=== PATIENT | male | born 1980 | race American Indian/Alaskan Native ===

== ENCOUNTER 2018-05-18 12:00 | Emergency (ER) | payer OTHER ==
[2018-05-18 12:09] VITALS: BP 145/89
--- NOTE | 2018-05-18 12:51 | Emergency Department Report ---
ED General Adult HPI - General Chief complaint: Dental/Oral Stated complaint: TOOTHACHE/BACK PAIN Time Seen by Provider: 05/18/18 12:34 Source: patient, family Mode of arrival: Ambulatory Limitations: No Limitations - History of Present Illness Initial comments: This is a 38-year-old male here report that he has been having complaints of toothache 2 weeks and does not have a dentist. He states that he has lower back pain with urinary frequency. Denies any trauma to back. Denies any urinary burning or urgency. Denies any blood in his urine. Pain is in his lower back on both sides and he has been having this on and off for a while. Denies any fever or chills. Denies any loss of bowel or bladder function. Denies any drooling, sore throat, cough, sinus congestion or runny nose. Denies any shortness of breath or wheezing. Patient does not have a dentist. And except for his chronic back pain he does not have any medical problems. He is here to have is tooth checked and also to check his urine to see if he evidently infection. Pain is 8 out of 10 worse with eating and talking and and his back pain is worse with movement but no alleviating factors to tooth/back. MD Complaint: toothache and back pain Onset/Timin (back pain for more than 3 months without any injury) -: week(s) Location: mouth, back Radiation: non-radiation Severity scale (0 -10): 8 Quality: aching Improves with: none Worsens with: eating, movement Associated Symptoms: denies: confusion, chest pain, cough, diaphoresis, fever/ chills, headaches, loss of appetite, malaise, nausea/vomiting, rash, seizure, shortness of breath, syncope, weakness Treatments Prior to Arrival: NSAID - Related Data Previous Rx's Medication Instructions Recorded Last Taken Type Acetaminophen/Codeine [Tylenol 1 tab PO Q6H PRN #14 tab 05/18/18 Unknown Rx /Codeine # 3 tab] Ibuprofen [Motrin] 600 mg PO Q8H PRN #12 tablet 05/18/18 Unknown Rx Penicillin V Potassium 500 mg PO Q8H 10 Days #30 tablet 05/18/18 Unknown Rx Allergies Allergy/AdvReac Type Severity Reaction Status Date / Time shellfish derived Allergy Anaphylaxis Verified 05/18/18 12:09 ED Review of Systems ROS: Stated complaint: TOOTHACHE/BACK PAIN Other details as noted in HPI Constitutional: denies: chills, fever ENT: dental pain. denies: ear pain, throat pain, hearing loss, congestion Respiratory: denies: cough, shortness of breath, SOB with exertion, SOB at rest , stridor, wheezing Cardiovascular: denies: chest pain, palpitations, edema, syncope Gastrointestinal: denies: abdominal pain, nausea, vomiting, diarrhea, constipation, hematemesis, melena, hematochezia Genitourinary: frequency. denies: urgency, dysuria, hematuria, discharge, testicular pain, testicular mass Musculoskeletal: back pain. denies: joint swelling, arthralgia Skin: denies: rash, lesions Neurological: denies: headache, weakness, numbness, paresthesias, confusion, abnormal gait, vertigo ED Past Medical Hx - Past Medical History Previous Medical History?: No - Surgical History Past Surgical History?: No - Family History Family history: hypertension - Social History Smoking Status: Current Every Day Smoker Substance Use Type: None - Medications Home Medications: Home Medications Medication Instructions Recorded Confirmed Last Taken Type Acetaminophen/Codeine [Tylenol 1 tab PO Q6H PRN #14 tab 05/18/18 Unknown Rx /Codeine # 3 tab] Ibuprofen [Motrin] 600 mg PO Q8H PRN #12 tablet 05/18/18 Unknown Rx Penicillin V Potassium 500 mg PO Q8H 10 Days #30 tablet 05/18/18 Unknown Rx ED Physical Exam - General Limitations: No Limitations General appearance: alert, in no apparent distress - Head Head exam: Present: atraumatic, normocephalic, normal inspection - Eye Eye exam: Present: normal appearance, PERRL, EOMI Pupils: Present: normal accommodation - ENT ENT exam: Present: normal orophraynx, mucous membranes moist, TM's normal bilaterally, normal external ear exam. Absent: normal exam - Expanded ENT Exam Expanded Ear exam: Present: normal external inspection Mouth exam: Present: tongue normal. Absent: drooling, trismus, muffled voice, tongue elevation, laceration Teeth exam: Present: dental caries, fractured tooth # (16 and 2), dental tenderness # (tooth #16), gingival enlargement. Absent: normal inspection Throat exam: Positive: normal inspection - Neck Neck exam: Present: normal inspection, full ROM. Absent: tenderness, lymphadenopathy - Respiratory Respiratory exam: Present: normal lung sounds bilaterally. Absent: respiratory distress, chest wall tenderness - Cardiovascular Cardiovascular Exam: Present: normal rhythm, tachycardia, normal heart sounds. Absent: systolic murmur, diastolic murmur - GI/Abdominal GI/Abdominal exam: Present: soft, normal bowel sounds. Absent: distended, tenderness, guarding, rebound, rigid, organomegaly, mass - Extremities Exam Extremities exam: Present: normal inspection, full ROM, normal capillary refill , other (No cce. + 2 pulses in all extremities, no neurovascular compromise). Absent: tenderness, pedal edema, joint swelling, calf tenderness - Back Exam Back exam: Present: normal inspection, full ROM, other (ambulates without any difficulties). Absent: tenderness, CVA tenderness (R), CVA tenderness (L), muscle spasm, paraspinal tenderness, vertebral tenderness, rash noted - Expanded Back Exam Expanded Back exam: Absent: saddle anesthesia Back exam: Negative Straight Leg Raising: Left, Right - Neurological Exam Neurological exam: Present: alert, oriented X3, normal gait, reflexes normal, other (no focal neurological deficits). Absent: motor sensory deficit - Psychiatric Psychiatric exam: Present: normal affect, normal mood - Skin Skin exam: Present: warm, dry, intact. Absent: rash ED Course Vital Signs 05/18/18 05/18/18 05/18/18 12:05 12:57 14:05 Temperature 98.3 F Pulse Rate 110 H 82 Respiratory 18 17 Rate Blood Pressure 145/89 O2 Sat by Pulse 98 Oximetry - Reevaluation(s) Reevaluation #1: 05/18/18 14:04 Patient given amoxicillin 1 g by mouth for toothache and dental caries with gingivitis and hydrocodone 5/325 mg 2 tablets by mouth for toothache. Urinalysis is negative. ED Medical Decision Making - Lab Data Lab Results 05/18/18 Range/Units 12:58 Urine Color Yellow (Yellow) Urine Turbidity Clear (Clear) Urine pH 5.0 (5.0-7.0) Ur Specific [place] 1.020 (1.003-1.030) Urine Protein <15 mg/dl (Negative) mg/dL Urine Glucose (UA) Neg (Negative) mg/dL Urine Ketones Neg (Negative) mg/dL Urine Blood Neg (Negative) Urine Nitrite Neg (Negative) Urine Bilirubin Neg (Negative) Urine Urobilinogen < 2.0 (<2.0) mg/dL Ur Leukocyte Esterase Neg (Negative) Urine WBC (Auto) 1.0 (0.0-6.0) /HPF Urine RBC (Auto) 2.0 (0.0-6.0) /HPF Urine Mucus Few /HPF - Medical Decision Making Patient presented to the emergency room before that he is having urinary frequency and lower back pain and he is worried about having urinary tract infection or kidney stone heave no he has not had any history of kidney stones. Patient reports that he is also having toothache and does not have a dentist. Patient is here to be seen for back pain, urinary frequency and toothache. Patient was seen and examined by myself. Vital signs are stable is a febrile, urinalysis with normal findings. Patient with dental tenderness to tooth #2 and 16. He is fracture to tooth #16. Gingivitis changes of bowel enlargement noted along with dental caries. Patient mouth is moist, oral airways patent, tongue is normal, no [employer] and no erythema to oropharynx area. Uvula is midline and oral airways patent. All other physical findings are normal. Patient had normal back exam with no CVA tenderness and no abdominal tenderness. I discussed the patient is diagnosis and urinalysis findings. Patient was given pain medication and antibiotic and emergency room and I discussed with family that he will need to follow-up with dentist and primary care physician which she does not have either. Assessment/plan Patient with poor dental care and follow-up with physical exam findings for Gingivitis, toothache, dental tenderness to tooth #2 and 16, fracture to tooth # 16, dental caries-patient given amoxicillin 1 g by mouth and emergency room and he was also given [place] 5/325 mg 2 tablets by mouth in the emergency room which relieved this pain. Patient will be discharged home on penicillin V and Tylenol 3 and Motrin for pain. Patient referred to [facility] Urinary frequency-urinalysis is normal Lower back pain-she will a chronic lower back pain and I referred him to orthopedic doctor. It is better after medication. Patient discharged home in stable condition. Vital signs stable is a febrile. He said his pain is better. He was given prescription for Motrin, Tylenol 3 and penicillin V and also told to follow-up with [facility], Dr. Oswald for chronic lower back pain and some outside [facility] for primary care visits in 3-5 days. - Differential Diagnosis [employer], pharyngitis, acute fracture, tooth abscess, gingivitis, toothache Critical care attestation.: If time is entered above; I have spent that time in minutes in the direct care of this critically ill patient, excluding procedure time. ED Disposition Clinical Impression: Toothache, Gingivitis, Dental caries Tooth fractures Qualifiers: Encounter type: initial encounter Fracture type: closed Qualified Code(s): S02.5XXA - Fracture of tooth (traumatic), initial encounter for closed fracture Lower back pain Qualifiers: Chronicity: unspecified Back pain laterality: bilateral Sciatica presence: without sciatica Qualified Code(s): M54.5 - Low back pain Disposition: TO HOME OR SELFCARE Is pt being admited?: No Does the pt Need Aspirin: No Condition: Stable Instructions: Dental Caries (ED), Gingivitis (ED), Toothache (ED), Back Pain ( ED) Additional Instructions: Please follow-up with orthopedic doctor for ongoing chronic lower back pain. Take Motrin for mild pain and Tylenol 3 for severe pain this will help her get toothache and your back pain. Urinalysis was normal Follow up at [facility] dental clinic to manage multiple dental problems. Gargle with Listerine mouthwash twice daily Take penicillin V for multiple dental problems Prescriptions: Acetaminophen/Codeine [Tylenol /Codeine # 3 tab] 1 tab PO Q6H PRN #14 tab PRN Reason: moderate to severe pain Ibuprofen [Motrin] 600 mg PO Q8H PRN #12 tablet PRN Reason: Pain Penicillin V Potassium 500 mg PO Q8H 10 Days #30 tablet Referrals: [facility] [place] [Outside] - 3-5 Days [facility] [Outside] - 3-5 Days JUAN PABLO OSWALD MD [Staff Physician] - 3-5 Days Forms: Work/School Release Form(ED)
[2018-05-18] MEDS ORDERED: NORCO 5/325 PO ONE (12:52)
[2018-05-18] MEDS ORDERED: TRIMOX PO ONE (12:52)
[2018-05-18 13:26] LABS: Bilirubin,Urine NEG (Negative); Blood,Urine NEG (Negative); Color,Urine Yellow (Yellow); Mucus,Urine FEW /HPF; Protein,Urine <15 mg/dL mg/dL (Negative); Urobilinogen,Urine < 2.0 mg/dL (<2.0)
== END 2018-05-18 14:18 | disposition home or self-care (01) ==
LOC: ED 12:00
DX: S02.5XXA Fracture of tooth (traumatic), initial encounter for closed fracture (principal); M54.5 Low back pain; K05.10 Chronic gingivitis, plaque induced; K02.9 Dental caries, unspecified; R35.0 Frequency of micturition; F17.200 Nicotine dependence, unspecified, uncomplicated; Z91.013 Allergy to seafood; X58.XXXA Exposure to other specified factors, initial encounter; Y93.89 Activity, other specified; Y92.89 Other specified places as the place of occurrence of the external cause; Y99.8 Other external cause status
CPT/HCPCS: 81001; 99283